=== PATIENT | male | born 1995 | race African-American/Black ===

== ENCOUNTER 2021-10-16 21:25 | Emergency (ER) | payer MEDICAID ==
[~2021-10-16] VITALS: Ht 170.2 cm; Wt 68.0 kg
[2021-10-16 21:38] VITALS: BP 134/86
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
[2021-10-16] MEDS ORDERED: KETOROLAC TROMETHAMINE INJ 60 MG/2 ML VIAL IM ONE (23:00)
[2021-10-16] MEDS ORDERED: OLANZAPINE 5 MG TABLET PO ONE (23:00)
--- NOTE | 2021-10-16 23:18 | NUR ---
PT RETURNED TO ER BED [address] VIA W/C
[2021-10-16] MEDS ORDERED: KETOROLAC TROMETHAMINE 15 MG/ML VIAL ONE (23:32)
[2021-10-16] MEDS ORDERED: OLANZAPINE 5 MG TABLET ONE (23:33)
[2021-10-16] MEDS ORDERED: KETOROLAC TROMETHAMINE INJ 30 MG/ML VIAL ONE (23:33)
[2021-10-16] MEDS ORDERED: QUETIAPINE FUMARATE 25 MG TABLET ONE (23:33)
--- NOTE | 2021-10-16 23:51 | NUR ---
Patient discharged to home in stable condition. Written and verbal after care instructions given. Patient verbalizes understanding of instruction.
== END 2021-10-16 23:52 | disposition home or self-care (01) ==
LOC: ER 21:28
DX: F15.10 Other stimulant abuse, uncomplicated (principal); R44.1 Visual hallucinations; M54.2 Cervicalgia; M25.512 Pain in left shoulder; F17.200 Nicotine dependence, unspecified, uncomplicated; Z59.00 Homelessness unspecified
CPT/HCPCS: 99284; 99406; 96372; 72050; 73030; J1885 ×2

== ENCOUNTER 2023-04-01 05:40 | Emergency (ER) | payer MEDICAID ==
[~2023-04-01] VITALS: Ht 170.2 cm; Wt 77.6 kg
[2023-04-01] MEDS ORDERED: IBUPROFEN 400 MG TABLET ONE (06:28)
[2023-04-01] MEDS ORDERED: ACETAMINOPHEN ES 500 MG TABLET ONE (06:28)
[2023-04-01] MEDS: ACETAMINOPHEN ES 500 MG TABLET PO ONE (06:31)
[2023-04-01] MEDS: IBUPROFEN 400 MG TABLET PO ONE (06:31)
[2023-04-01 08:30] VITALS: BP 133/84; TEMP 98.1; O2SAT 98
== END 2023-04-01 08:30 | disposition home or self-care (01) ==
LOC: ER 05:42
DX: M25.562 Pain in left knee (principal); F17.200 Nicotine dependence, unspecified, uncomplicated; Z59.00 Homelessness unspecified; W18.09XA Striking against other object with subsequent fall, initial encounter; Y93.89 Activity, other specified; Y92.89 Other specified places as the place of occurrence of the external cause; Y99.8 Other external cause status
CPT/HCPCS: 73564-TC